=== PATIENT | female | born 1975 | race Caucasian/White ===

== ENCOUNTER 2024-10-14 15:42 | Emergency (ER) | payer BC, SELFPAY ==
[2024-10-14 15:46] VITALS: BP 123/82
--- NOTE | 2024-10-14 17:19 | ED.GENMED ---
History of Present Illness
General
Chief Complaint: Skin Problem
Source: patient
Exam Limitations: none
Time Seen by Provider: 10/14/24 17:12
History of Present Illness
History of Present Illness:
48yo right hand dominant female presenting with her for evaluation of a left ring finger laceration that was sustained about 2 hours ago. Patient was trying to get a pit out of an avocado and accidentally cut herself. She has some mild
tingling in the digit. Last Tdap was in 2021.
Phy Exam
General Physical Exam
General Presentation: well appearing and no apparent distress
General Skin: warm and dry
General Habitus: normal
General Mental: alert
ENT Exam
ENT Exam: normocephalic
Musculoskeletal Exam
Musculoskeletal Exam: other (Approx 2cm laceration to the proximal L ring finger at the palmar surface. No visualized tendon. No active bleeding. No bony tenderness. ROM of DIP, PIP, and MCP joint intact. Cap refill and sensation intact at
fingertip.)
Skin Exam
Skin Exam: normal color and warm/dry
Psychiatric Exam
Psychiatric Exam: normal mood/affect
Course
Vital Signs
Initial and Last Documented VS:
Initial Vital Signs
Temp Pulse Resp BP Pulse Ox
97.9 F 78 16 123/82 98
10/14/24 15:46 10/14/24 15:46 10/14/24 15:46 10/14/24 15:46 10/14/24 15:46
Last Documented Vital Signs
Temp Pulse Resp BP Pulse Ox
97.9 F 78 16 123/82 98
10/14/24 15:46 10/14/24 15:46 10/14/24 15:46 10/14/24 15:46 10/14/24 17:20
Procedures
Laceration Closure
Left Palmar Fourth Finger(s):
Status of Wound: clean
Size of Wound in cm: 2
Description of Wound Edges: sharp
Preparation: cleaned with saline
Anesthesia: 1% Lidocaine and Digital-Regional
Wound exploration: explored to base- no FB and no tendon involvement
Type of Closure: single layer closure
Skin Closure Material: 4-0 nylon
Number of sutures: 5
MDM/Problems Addressed
Differential Diagnosis Includes:
48yoF here with a L ring finger laceration. 2cm laceration noted to the proximal digit. ROM intact and there is no evidence of tendon/bony involvement. Wound cleaned and repaired as above. Home wound care discussed. Patient instructed to have
sutures removed in 10 days and return with any signs of infection.
*Pulse Oximetry
SaO2: 98
Oxygen Mode of Delivery: Room air
Patient hypoxic: no (98%)
*Critical Care Note
Total Time (30-74mins, 75-104mins- exclusive of procedures): Not Applicable
ED Attending Note
-
Portions of this chart may have been created with voice recognition software.� Occasional wrong word or��sound alike� substitutions may have occurred due to the inherent limitations of voice recognition software.
Discharge Plan
Departure
Patient Disposition: Home (Routine Discharge)
Date of Disposition: 10/14/24
Time of Disposition: 17:52
Patient with high blood pressure during this ER visit?: No
Discharge Problem:
Laceration of left ring finger
Instructions: Stitches - ED discharge instructions
Referrals:
Anuja Sage MD [Family Provider, Internal Medicine]
Activity Restrictions/Additional Instructions:
Sutures should be removed in 10 days. Keep wound clean and dry. Change dressings daily.
Return to the ER with any signs of infection.
Interventions
Interventions:
*Risk Screen - Suicide Last Done: 10/14/24 15:46
*Neglect/Abuse Screening Last Done: 10/14/24 15:46
ED-Skin Assessment Last Done: 10/14/24 16:25
Discharge Date and Time
Print Language: KHMER
== END 2024-10-14 18:33 | disposition home or self-care (01) ==
LOC: EMR 15:42
PROVIDERS: EMERGENCY PHYSICIAN Emergency Medicine; FAMILY PHYSICIAN Internal Medicine
DX: S61.215A Laceration without foreign body of left ring finger without damage to nail, initial encounter (principal); W27.8XXA Contact with other nonpowered hand tool, initial encounter
CPT/HCPCS: 12001; 99282